=== PATIENT | female | born 1960 ===

== ENCOUNTER 2017-10-04 09:27 | Outpatient (CLI) | payer BC ==
[2017-10-04] MEDS ORDERED: ISOVUE-370 76%-LOCM 1 ML ONE (12:54)
== END 2017-10-04 09:28 | disposition home or self-care (01) ==
LOC: BICCT 09:27
PROVIDERS: ATTEND Family Medicine
DX: R22.1 Localized swelling, mass and lump, neck (principal)
CPT/HCPCS: 70492